=== PATIENT | male | born 2000 | race Caucasian/White ===

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

== ENCOUNTER 2020-06-02 23:16 | Emergency (ER) | payer OTHER ==
[~2020-06-02] VITALS: Ht 172.7 cm; Wt 74.7 kg
[2020-06-02 23:18] VITALS: BP 119/75
[2020-06-02] MEDS ORDERED: CEPHALEXIN 500 MG CAPSULE ONE (23:41)
[2020-06-02] MEDS ORDERED: IBUPROFEN 600 MG TABLET ONE (23:42)
[2020-06-02] MEDS ORDERED: LIDOCAINE-MPF 2% ,5ML ONE (23:42)
[2020-06-03] MEDS ORDERED: IBUPROFEN 600 MG TABLET PO ONE
[2020-06-03] MEDS ORDERED: LIDOCAINE 2%, 20ML SQ ONE
[2020-06-03] MEDS ORDERED: CEPHALEXIN 500 MG CAPSULE PO ONE
== END 2020-06-03 01:18 | disposition home or self-care (01) ==
LOC: ED 23:43
DX: S91.145A Puncture wound with foreign body of left lesser toe(s) without damage to nail, initial encounter (principal); S91.125A Laceration with foreign body of left lesser toe(s) without damage to nail, initial encounter; X58.XXXA Exposure to other specified factors, initial encounter; Y93.89 Activity, other specified; Y92.828 Other wilderness area as the place of occurrence of the external cause; Y99.8 Other external cause status
CPT/HCPCS: 10120; 99285

== ENCOUNTER 2021-05-09 20:00 | Emergency (ER) | payer OTHER ==
[~2021-05-09] VITALS: Ht 172.7 cm; Wt 74.5 kg
[2021-05-09 20:09] VITALS: BP 145/92
[2021-05-09] MEDS ORDERED: KETOROLAC 30 MG/1 ML IM ONE (22:00)
[2021-05-09] MEDS ORDERED: DIAZEPAM 5 MG TABLET PO ONE (22:00)
[2021-05-09] MEDS ORDERED: LIDODERM 5% PATCH TD ONE ×2 (22:00→22:04)
[2021-05-09] MEDS ORDERED: DIAZEPAM 5 MG TABLET ONE (22:04)
[2021-05-09] MEDS ORDERED: KETOROLAC 30 MG/1 ML ONE (22:04)
== END 2021-05-09 22:54 | disposition home or self-care (01) ==
LOC: ED 22:31
DX: S39.012A Strain of muscle, fascia and tendon of lower back, initial encounter (principal); X58.XXXA Exposure to other specified factors, initial encounter; Y93.89 Activity, other specified; Y92.89 Other specified places as the place of occurrence of the external cause; Y99.8 Other external cause status
CPT/HCPCS: 96372; 99283; J1885